=== PATIENT | female | born 2000 | race Caucasian/White ===

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

== ENCOUNTER 2020-05-08 07:32 | Emergency (ER) | payer OTHER ==
[2020-05-08] MEDS ORDERED: DEXAMETHASONE 4 MG TABLET PO ONE (08:33)
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
[2020-05-08 09:00] VITALS: BP 114/78
== END 2020-05-08 09:00 | disposition home or self-care (01) ==
LOC: ER 07:32
DX: T65.891A Toxic effect of other specified substances, accidental (unintentional), initial encounter (principal); T22.442A Corrosion of unspecified degree of left axilla, initial encounter; T22.441A Corrosion of unspecified degree of right axilla, initial encounter; Y93.89 Activity, other specified; J45.909 Unspecified asthma, uncomplicated
CPT/HCPCS: 99283; J8540